=== PATIENT | male | born 1935 | race Caucasian/White ===

== ENCOUNTER → 2023-10-08 12:30 | Outpatient (REF) | payer MEDICARE, BC, SELFPAY ==
[2023-10-08 13:40] LABS: % Basophils 0.6 % (0-2); % Eosinophils 2.2 % (0-6); % Immature Granulocytes 0.3 % (0-0.5); % Lymphocytes 18.5 % (20.5-51.1); % Monocytes 11.3 % (1.7-9.3); % Neutrophils 67.1 % (42.2-75.2); Absolute Eosinophils 0.1 10^3/uL (0-0.7); Absolute Lymphocytes 1.2 10^3/uL (1.2-3.4); Absolute Monocytes 0.7 10^3/uL (0.1-0.6); Absolute Neutrophils 4.3 10^3/uL (1.4-6.5); Hematocrit 41.6 % (39.0-52.0); Hemoglobin 13.9 g/dL (13.0-18.0); Mean Corp Hgb Conc. 33.4 g/dL (33.0-37.0); Mean Corpuscular Hgb 29.1 pg (27.0-31.0); Mean Corpuscular Volume 87.2 fL (80.0-94.0); Mean Platelet Volume 9.4 fL (7.4-10.4); Nucleated Red Blood Cells % 0 % (-); Platelet Count 224 10^3/uL (130-400); Red Blood Cell Count 4.77 10^6/uL (4.70-6.10); Red Cell Dist. Width 14.6 % (11.5-14.5); White Blood Cell Count 6.5 10^3/uL (4.8-10.8)
[2023-10-08 14:08] LABS: Blood Urea Nitrogen 28 mg/dl (9-20); Calcium 9.1 mg/dl (8.4-10.2); Carbon Dioxide 30 mmol/L (22-30); Chloride 96 mmol/L (98-107); Glucose 116 mg/dl (70-99); Potassium 3.4 mmol/L (3.5-5.1); Sodium 137 mmol/L (135-145); eGFR 38.53
== END ==
LOC: REG 12:30
PROVIDERS: ATTENDING PHYSICIAN Family Medicine
DX: N18.31 Chronic kidney disease, stage 3a (principal)
CPT/HCPCS: 36415; 80048; 85025

== ENCOUNTER → 2023-10-08 13:11 | Outpatient (REF) | payer MEDICARE, BC, SELFPAY | LOC: RAD 13:11 | PROVIDERS: ATTENDING PHYSICIAN Internal Medicine Critical Care Medicine | DX: J84.9 Interstitial pulmonary disease, unspecified (principal); R91.8 Other nonspecific abnormal finding of lung field | CPT/HCPCS: 71250 ==

== ENCOUNTER 2023-12-26 11:15 | Inpatient (IN) | payer MEDICARE, BC, SELFPAY ==
[2023-12-25 15:42] VITALS: BMI 36.0
[2023-12-25 16:01] VITALS: BP 134/80
[2023-12-25 16:01] LABS: Hematocrit 38.7 % (39.0-52.0); Hemoglobin 13.2 g/dL (13.0-18.0); Mean Corp Hgb Conc. 34.1 g/dL (33.0-37.0); Mean Corpuscular Hgb 30.1 pg (27.0-31.0); Mean Corpuscular Volume 88.2 fL (80.0-94.0); Mean Platelet Volume 9.5 fL (7.4-10.4); Platelet Count 210 10^3/uL (130-400); Red Blood Cell Count 4.39 10^6/uL (4.70-6.10); Red Cell Dist. Width 15.6 % (11.5-14.5); White Blood Cell Count 8.3 10^3/uL (4.8-10.8)
[2023-12-25 16:25] LABS: NT-proBNP 3180 pg/ml
--- NOTE | 2023-12-25 17:06 | ED.GENMED ---
History of Present Illness
General
Chief Complaint: Breathing Problem
Source: patient, family, daycare teacher and ambulance crew
Time Seen by Provider: 12/25/23 16:46
History of Present Illness
History of Present Illness:
88-year-old male with past medical history of COPD, atrial fibrillation, CHF, hypertension, hyperlipidemia, CKD, previous CVA presenting to the emergency department via EMS after caretaker grounds at home noticed patient was significantly weak and unable to
get up from the bed and seemed very short of breath. Patient endorses the shortness of breath and states that this started last night while he was just laying down and has since continued and associated with a nonproductive cough. No medications
were given at home but EMS reports they did give [address] the way to the ER but patient does not remember this and states he does not feel any different currently. No reports of fever at home, no chest pain, no palpitations, no
diaphoresis, no lower extremity edema per family or caretaker grounds. They report patient takes medications daily and is usually quite good and not missing any dosages. Patient sees cardiology, Dr. Rosen and cooker operator Dr. Johnson
Past History
Past History
ED Past Medical History: Arrthythmia (AFIB, s/p cardioversion), CHF, COPD, HTN, Hypercholesterolemia and Hypothyroidism
ED Past Surgical History: None
Social History
Tobacco: Former smoker
Alcohol: Occasional
Drug: None
Personal:
Living: with family
Review of Systems
Review of Systems
All Other Systems: ROS reviewed and negative except as documented in HPI and ROS
Phy Exam
Physical Exam
Physical Exam:
GENERAL: Alert , in no apparent distress, overweight
HEAD: NCAT
EYE: Clear conjunctiva
NECK: Supple
ENT: o/p clr, mmm.
CARDIAC: Irregularly irregular rate and rhythm but rate controlled
LUNGS: Scattered wheezes throughout, tachypneic with accessory muscle use
ABDOMEN: Soft, without focal tenderness, no r/g, no cvat
NEUROLOGICAL: Alert and oriented
SKIN: Warm and dry, skin intact.
MUSCULOSKELETAL: trace nonpitting ankle edema bilateral, well perfused.
PSYCH: Normal and appropriate interaction.
Scores
Heart Failure Risk
Heart Failure Risk Score: Yes
History of Stroke or TIA: Yes
History of intubation for respiratory distress: No
Heart rate on ED arrival >/= 110: No
SaO2 <90% on arrival on room air: No
HR >/=110 during 3min walk test (or too ill to perform test): Yes
ECG has acute ischemic changes: No
Urea >/=12mmol/L (BUN 33.6mg/dL): No
Serum CO2>/=35mmol/L: No
Troponin I or T elevated to IL Level (0.4mg/dL): No
NT-proBNP >/=5,000ng/L (5,000pg/ml): No
HF Risk Score: 3
Admission Status: HIGH RISK 15.9% Consider SNF treatment or admission to hospital
Heart Score for Chest Pain Patients
STEMI patient?: Not applicable
Withdrawal Assessment of Alcohol
Withdrawal Assessment Completed?: Not applicable
Course
Orders/Labs/Results
Orders:
Orders
12/25/23 15:47
Electrocardiogram (*1) Urgent
Reason for Study: Shortness of Breath
EKG- Treatment ONCE
12/25/23 15:51
BNP [NT-proBNP] Urgent
Complete Blood Count/No Diff Urgent
Troponin I Urgent
Comment: ADD ON
12/25/23 17:03
Albuterol Nebs [Ventolin Nebules] 2.5 mg INH R NOW STA
CR Chest Portable - 1 View Urgent
Comment:
Reason For Exam: SOB
Reason Study Needs to be Portable: Unable to Transport
12/25/23 17:13
Add On- LAB Urgent
Tests Added?: troponin
12/25/23 17:38
COVID-19 Antigen Urgent
Source: Nasal Swab
Comprehensive Metabolic Panel Urgent
12/25/23 18:22
MethylPREDNISolone PF [Solu-Medrol Pf] 60 mg IV NOW STA
Abnormal Lab Results
12/25/23 12/25/23
15:51 17:38
RBC 4.39 L 10^6/uL
(4.70-6.10)
Hct 38.7 L %
(39.0-52.0)
RDW 15.6 H %
(11.5-14.5)
Sodium 133 L mmol/L
(135-145)
BUN 22 H mg/dl
(9-20)
Creatinine 1.6 H mg/dL
(0.7-1.3)
Glucose 115 H mg/dl
(70-99)
Total Bilirubin 2.6 H mg/dl
(0.2-1.3)
12/25/23 15:51
12/25/23 17:38
Vital Signs
Initial and Last Documented VS:
Initial Vital Signs
Temp
99.3 F
12/25/23 15:51
Last Documented Vital Signs
Temp Pulse Resp BP Pulse Ox
99.3 F 86 29 138/84 93
12/25/23 15:51 12/25/23 18:40 12/25/23 18:40 12/25/23 18:40 12/25/23 18:40
MDM/Problems Addressed
Differential Diagnosis Includes:
CHF, COPD, pneumonia, viral syndrome, electrolyte disturbance, pulmonary edema
MDM/Problems Addressed:
88-year-old male presenting to the emergency department for evaluation of generalized weakness, cough, shortness of breath. Arrives tachypneic with accessory muscle use. O2 saturation ranging from 92 to 96% on room air. Patient unable to sit up
without significant assistance which is very atypical for him per family. He does have scattered wheezing throughout so we will treat with an albuterol regimen. Labs ordered as well as chest x-ray. Based off of age, chronic medical conditions and
current presentation I do anticipate admission.
Chronic conditions affecting care: Arrhythmia, COPD and Other (CHF)
*Radiology
Radiology exam reviewed: radiology read reviewed
*Pulse Oximetry
Patient hypoxic: no
*EKG
Interpreted by ED Provider?: Yes
Comparison EKG: no changes
Heart Rate: 85
Rate: normal
Rhythm: a-fib and PVC's
[place]: left axis deviation
Ischemia: no ischemia
*Roofer [employer] Interpretation
Rate: normal
Rhythm: a-fib
*Critical Care Note
Total Time (30-74mins, 75-104mins- exclusive of procedures): Not Applicable
Data Reviewed
Review of Other/Old Records Reveals: Labs and Records
Source: patient, records and family
Patient Management
Discussion with other providers: Hospitalist
Escalation/DeEscalation of care consider admission/obs:
Patient's labs are mostly reassuring. BNP is elevated however lower than previous. No signs of anemia or electrolyte disturbance. COVID-negative. Chest x-ray without any acute abnormalities. Patient noted no improvement with albuterol. Still
has little bit of an upper airway wheeze however. He is still unable to hold himself up in bed. Given his age and chronic medical conditions will admit for continuous monitoring. Hospitalist team is aware and accepts for continued evaluation and
treatment.
ED Attending Note
-
Portions of this chart may have been created with voice recognition software.� Occasional wrong word or��sound alike� substitutions may have occurred due to the inherent limitations of voice recognition software.
Discharge Plan
Departure
Patient Disposition: Admit
Date of Disposition: 12/25/23
Time of Disposition: 18:21
Presentation/result/management discussed w/ accepting MD/DO: Hospitalist
Discharge Problem:
Generalized weakness, Acute exacerbation of chronic obstructive pulmonary disease, CHF (congestive heart failure)
Prescriptions:
No Action
cyanocobalamin (vitamin B-12) 1,000 MCG tablet
1,000 mcg PO DAILY
calcium polycarbophil [Fiber-Tabs] 625 MG tablet
625 mg PO DAILY
levothyroxine 125 mcg Tablet
125 mcg PO DAILY
Eliquis 2.5 mg Tablet
2.5 mg PO BID 30 Days Qty: 60 0RF
furosemide [Lasix] 80 mg tablet
80 mg PO DAILY Qty: 90 5RF
pantoprazole 40 mg Tablet,Delayed Release (Dr/Ec)
40 mg PO DAILY Qty: 90 0RF
sennosides [senna] 8.6 mg Tablet
8.6 mg PO DAILY
atorvastatin 20 mg Tablet
20 mg PO HS
furosemide 80 mg Tablet
40 mg PO DAILY@1300 PRN (Reason: swelling/edema)
dapagliflozin propanediol [Farxiga] 10 mg Tablet
10 mg PO DAILY
metoprolol succinate 25 mg tablet extended release 24 hr
25 mg PO BID
Referrals:
Hilda England MD [Family Provider] -
Interventions
Interventions:
*Risk Screen - Suicide Last Done: 12/25/23 15:42
*General Assessment Last Done: 12/25/23 15:42
*Neglect/Abuse Screening Last Done: 12/25/23 15:42
*ED COVID-19 Vaccine History Last Done: 12/25/23 15:42
ED- Cardiac Assessment Last Done: 12/25/23 18:45
ED- Pulmonary Assessment Last Done: 12/25/23 18:45
Discharge Date and Time
Print Language: SWISS
[2023-12-25] MEDS: VENTOLIN NEBULES 2.5 MG INH (17:15)
[2023-12-25 17:37] LABS: Troponin I < 0.012 ng/ml
[2023-12-25 17:58] LABS: COVID-19 Antigen Negative (Negative)
[2023-12-25 18:09] LABS: ALT (SGPT) 13 U/L (0-50); AST (SGOT) 35 U/L (17-59); Alkaline Phosphatase 72 U/L (38-126); Blood Urea Nitrogen 22 mg/dl (9-20); Calcium 8.7 mg/dl (8.4-10.2); Carbon Dioxide 27 mmol/L (22-30); Chloride 99 mmol/L (98-107); Estimated Creatinine Clearance 43 ml/min; Glucose 115 mg/dl (70-99); Potassium 4.3 mmol/L (3.5-5.1); Sodium 133 mmol/L (135-145); Total Bilirubin 2.6 mg/dl (0.2-1.3); Total Protein 7.4 g/dl (6.3-8.2); eGFR 41.19
--- NOTE | 2023-12-25 18:23 | HPS.HSE ---
Family Physician
-
Family Physician: Hilda England MD
Chief Complaint
-
Generalized weakness
History of Present Illness
88-year-old male with past medical history of COPD, atrial fibrillation, CHF, hypertension, hyperlipidemia, CKD, previous CVA presenting to the emergency department via EMS after search analyst at home noticed patient was significantly weak and unable to
get up from the bed . He vomited once. Patient seemed short of breath last night . At present he is denying any short of breath or chest pain.denied worsening lower extremities edema. Patient denied any headache, dizziness, syncopal episode
patient denied any fever, chills .patient has chronic cough .patient denied abdominal pain, nausea, vomiting, diarrhea. Patient denies dysuria hematuria
Patient received steroids labs in ER. Admitted for further management
Medical History
Past Medical History
Past Medical History: Reports Other
Additional Past Medical History:
HTN
Hypothyroidism
TIA
atiral fib
peripheral neuropathy
CKD
hld
Past Surgical History: Reports Other
Additional Past Surgical History:
MOHS surgery
cardioversion x2
Social History
Tobacco: Former Smoker
Alcohol: None
Drug: None
Personal: Single
Living: With Family
Family History
Family History: Not pertinent
Allergies / Home Medications
Allergies reflects when Allergies were last updated in [facility].
Home Medications with original date entered in [facility]
Allergy/Medication List:
Allergies
Allergy/AdvReac Type Severity Reaction Status Date / Time
amlodipine Allergy cough Verified 12/25/23 15:55
lisinopril Allergy cough Verified 12/25/23 15:55
Home Medications
calcium polycarbophil 625 mg tablet (Fiber-Tabs) 625 mg PO DAILY 01/17/20
cyanocobalamin (vitamin B-12) 1,000 mcg tablet 1,000 mcg PO DAILY Supplement 01/17/20
levothyroxine 125 mcg tablet 125 mcg PO DAILY 03/01/22
apixaban 2.5 mg tablet (Eliquis) 2.5 mg PO BID 30 days #60 tabs 03/08/22
furosemide 80 mg tablet (Lasix) 80 mg PO DAILY #90 tabs 06/05/22
pantoprazole 40 mg tablet,delayed release 40 mg PO DAILY #90 tabs 07/11/22
atorvastatin 20 mg tablet 20 mg PO HS 12/25/23
dapagliflozin propanediol 10 mg tablet (Farxiga) 10 mg PO DAILY 12/25/23
furosemide 80 mg tablet 40 mg PO DAILY@1300 PRN swelling/edema 12/25/23
metoprolol succinate 25 mg tablet,extended release 24 hr 25 mg PO BID 12/25/23
sennosides 8.6 mg tablet (senna) 8.6 mg PO DAILY 12/25/23
Review of Systems
-
Constitutional: Reports No Symptoms
EENT: Reports No Symptoms
Respiratory: Reports Trouble Breathing
Cardiac: Reports No Symptoms
Abdomen/GI: Reports Vomiting
: Reports No Symptoms
Musculoskeletal: Reports No Symptoms
Skin: Reports No Symptoms
Neurological: Reports Weakness
Endocrine: Reports No Symptoms
Hematologic/Lymphatic: Reports No Symptoms
Psych: Reports No Symptoms
Physical Exam
Vital Signs
Vital Signs
Temp Pulse Resp BP Pulse Ox
99.3 F 82 34 134/80 92
12/25/23 15:51 12/25/23 16:01 12/25/23 16:01 12/25/23 16:01 12/25/23 16:01
Physical Exam
General: Well Developed, Well Nourished and No Apparent Distress
HEENT: NormoCephalic, Moist mucous membranes and Atraumatic
Respiratory: Clear
Cardiac: S1/S2 and Regular Rhythm; No Murmur or Rub
GI: Soft, Non Tender, Non Distended and Normal Bowel Sounds; No Organomegaly
Rectal: Deferred by Provider
Musculoskeletal: No Clubbing, No Cyanosis and No Edema
Skin: No Rash
Neuro: AO x 3 and Nonfocal/grossly intact
Psych: Calm
Laboratory Results
-
12/25/23 15:51
12/25/23 17:38
Laboratory Results
Total Bilirubin 2.6 mg/dl (0.2-1.3) H 12/25/23 17:38
AST 35 U/L (17-59) 12/25/23 17:38
ALT 13 U/L (0-50) 12/25/23 17:38
Alkaline Phosphatase 72 U/L (38-126) 12/25/23 17:38
Troponin I Cancelled 12/25/23 17:03
Data Reviewed
-
Diagnostic Radiology: Report Reviewed by me
Lab Data: Labs Reviewed by me
Impression/Plan
-
# Short of breath unclear cause
-COVID negative
-chest x ray with No suspected acute cardiopulmonary process.
-Patient denying any short of breath
-Continue to monitor
#generalized weakness
-PT/OT consult
# History of CHF
-BNP 3180
-Strict [place]
-Daily weight
-Furosemide from home continued
-Farxiga continued
# Paroxysmal A-fib
-Eliquis continued
-Metoprolol continued
#GERD
-PPI continued
#CKD stage 3b
-cr 1.6
ctm
#HLD
Continue atorvastatin
#Hypothyroidism
Levothyroxine 125 MCG daily
DVT prophylaxis eliquis
# CODE STATUS
-Full code
--- NOTE | 2023-12-25 18:27 | W.PN.UPDATE ---
Update Note
Progress Note Update
I saw and examined the patient.
The ORGANIZATIONAL EFFECTIVENESS DIRECTOR or PA's note was reviewed and I agree with the note.
Comment: 80-year-old male with PMHx:
CAD s/p stents
HFrEF
Essential hypertension
Hyperlipidemia
h/o TIA
DM2
COPD
ILD
Hypothyroidism
BPH
Permanent atrial fibrillation
CKD3b
Hyponatremia
who p/w chief complaints of weakness and shortness of breath.
130/80, 82, 34, 9.3 �F, 92% RA
Gen: NAD, AAOx3.
Eyes: EOMI, PERRLA, no scleral icterus.
Neck: supple.
CV: irreg/irreg, +S1/S2, no m/r/g.
Resp: Faint expiratory wheezes, greatest in the upper lung roberts
Abd: +BS, soft, NT, ND
Skin: No rashes.
Neuro: CN 2-12 intact, non-focal.
Psych: Normal mood and affect.
Lab Results
12/25/23 12/25/23 12/25/23
15:51 17:03 17:38
WBC 8.3
RBC 4.39 L
Hgb 13.2
Hct 38.7 L
MCV 88.2
MCH 30.1
MCHC 34.1
RDW 15.6 H
Plt Count 210
MPV 9.5
Sodium Cancelled 133 L
Potassium Cancelled 4.3
Chloride Cancelled 99
Carbon Dioxide Cancelled 27
BUN Cancelled 22 H
Creatinine Cancelled 1.6 H
Estimated Creat Clear Cancelled 43
eGFR Cancelled 41.19
Glucose Cancelled 115 H
Calcium Cancelled 8.7
Total Bilirubin Cancelled 2.6 H
AST Cancelled 35
ALT Cancelled 13
Alkaline Phosphatase Cancelled 72
Troponin I < 0.012 Cancelled
Bqr-H-Zqbmjklfbyt Pept 3180
Total Protein Cancelled 7.4
Albumin Cancelled 4.0
SARS-CoV-2 Antigen Negative
CXR: No suspected acute cardiopulmonary process.
SOB, weakness:
-Patient was short of breath last night but denies shortness of breath at this time.
-CXR without acute disease
-proBNP lower than prior at 3180
-saturating well on RA (92% is ideal for COPD pt)
-Currently there does not appear to be an exacerbation of COPD or CHF
-PT/OT/CM
[2023-12-25 18:40] VITALS: BP 138/84
[2023-12-25 20:07] VITALS: BP 123/80; BMI 34.6
[2023-12-25] MEDS: ELIQUIS 2.5 MG PO (21:20)
[2023-12-25] MEDS: TOPROL XL 25 MG PO (21:20)
[2023-12-25] MEDS: LIPITOR 20 MG PO (21:21)
[2023-12-25 23:35] VITALS: BP 172/97
[2023-12-25 23:45] VITALS: BP 155/94
[2023-12-26] VITALS (7 sets, daily range): BP systolic 124–152; BP diastolic 78–98; PULSE 74–78; O2SAT 96; BMI 34.5
--- NOTE | 2023-12-26 03:44 | PTCARENOTE ---
Pt very congested, looks SOB/grunting- pt states is normal for him. Feels warm to touch temp 99.2 axillary, orally 98.2- pt refusing rectal temp at this time. Pt vomited moderate amount yellow emesis found on pt and on gown- pt did not ring call
marshall to notify RN that he had vomited- denies nausea at this time. Cleaned patient, bed alarm in place. Care is ongoing.
[2023-12-26] MEDS: SYNTHROID 125 MCG PO (06:11)
[2023-12-26 08:23] LABS: Hematocrit 39.6 % (39.0-52.0); Hemoglobin 13.1 g/dL (13.0-18.0); Mean Corp Hgb Conc. 33.1 g/dL (33.0-37.0); Mean Corpuscular Hgb 29.9 pg (27.0-31.0); Mean Corpuscular Volume 90.4 fL (80.0-94.0); Mean Platelet Volume 9.6 fL (7.4-10.4); Platelet Count 190 10^3/uL (130-400); Red Blood Cell Count 4.38 10^6/uL (4.70-6.10); White Blood Cell Count 6.2 10^3/uL (4.8-10.8)
[2023-12-26] MEDS: VITAMIN B-12 1000 MCG PO (08:50)
[2023-12-26] MEDS: SENOKOT 8.6 MG PO (08:50)
[2023-12-26] MEDS: FARXIGA 10 MG PO (08:51)
[2023-12-26] MEDS: FIBERCON 625 MG PO (08:51)
[2023-12-26] MEDS: TOPROL XL 25 MG PO ×2 (08:51→21:34)
[2023-12-26] MEDS: PROTONIX 40 MG PO (08:51)
[2023-12-26] MEDS: ELIQUIS 2.5 MG PO ×2 (08:51→21:34)
[2023-12-26 08:57] LABS: Blood Urea Nitrogen 21 mg/dl (9-20); Calcium 8.8 mg/dl (8.4-10.2); Carbon Dioxide 28 mmol/L (22-30); Chloride 97 mmol/L (98-107); Estimated Creatinine Clearance 39 ml/min; Glucose 122 mg/dl (70-99); Potassium 3.6 mmol/L (3.5-5.1); Sodium 134 mmol/L (135-145)
--- NOTE | 2023-12-26 09:54 | W.PN.HOSP.TC ---
Addendum entered and electronically signed by Bienvenido Berger MD 12/26/23 10:32:
Correction to physical exam:
Gen: NAD, Awake and alert, appears chronically ill
Eyes: EOMI, PERRLA, no scleral icterus.
Neck: supple.
CV: irreg/irreg, +S1/S2, no m/r/g.
Resp: CTAB anteriorly
Abd: +BS, soft, NT, ND
Skin: No rashes.
Neuro: CN 2-12 intact, non-focal.
Psych: Normal mood and affect.
Original Note:
Today's Communication/Plan
-
see bold
Assessment / Plan
Assessment / Plan
Gen: NAD, AAOx3.
Eyes: EOMI, PERRLA, no scleral icterus.
Neck: supple.
CV: irreg/irreg, +S1/S2, no m/r/g.
Resp: Faint expiratory wheezes, greatest in the upper lung roberts
Abd: +BS, soft, NT, ND
Skin: No rashes.
Neuro: CN 2-12 intact, non-focal.
Psych: Normal mood and affect.
CXR: No suspected acute cardiopulmonary process.
SOB, weakness:
-Patient was short of breath one night prior to admission but denied shortness of breath at this time of admission
-CXR without acute disease
-proBNP lower than prior at 3180
-saturating well on RA (92% is ideal for COPD pt)
-Currently there does not appear to be an exacerbation of COPD or CHF
-PT/OT/CM
-with drowsiness, confusion (possible acute metabolic encephalopathy) and urinary urgency, possible UTI. Check U/A reflex to culture.
Other problems:
Chronic HFmrEF: Farxiga/BB/Lasix
Paroxysmal A-fib: cont Eliquis/BB
GERD: cont PPI
CKD3b
HLD: cont statin
Hypothyroidism: Cont Levoxyl
FULL/Eliquis
Medically cleared for discharge pending U/A, case management aware.
Anticipated Discharge: Today
Subjective/Interval History
-
Date of Service: December 26, 2023
Caregiver with concerns for pt being 'more drowsy and confused.' Also reporting urinary urgency.
The pt denies dyuria or change in frequency.
Objective Data
-
Labs:
Laboratory Results
12/26/23
07:08
WBC 6.2
Hgb 13.1
Hct 39.6
Plt Count 190
Sodium 134 L
Potassium 3.6
Chloride 97 L
Carbon Dioxide 28
BUN 21 H
Creatinine 1.7 H
Glucose 122 H
Calcium 8.8
Vital Signs:
Vital Signs
Temp Pulse Resp BP Pulse Ox
98.7 F 75 24 138/79 96
12/26/23 07:15 12/26/23 07:15 12/26/23 07:15 12/26/23 07:15 12/26/23 07:15
I&O
12/25/23 12/26/23 12/27/23
06:59 06:59 06:59
Output Total 200 / 200
Balance -200 / -200
[2023-12-26] MEDS: LASIX 80 MG PO (10:13)
[2023-12-26] MEDS: TYLENOL 650 MG PO ×2 (11:04→23:24)
[2023-12-26 11:13] LABS: Urine Albumin 1+ (Neg - Trace); Urine Bilirubin Negative (Negative); Urine Character Clear (Clear); Urine Color Yellow; Urine Glucose 3+ (Negative); Urine Ketone Negative (Negative); Urine Leukocyte Negative (Negative); Urine Nitrite Negative (Negative); Urine Occult Blood 3+ (Negative); Urine Urobilinogen 1+ (Neg - 1+)
--- NOTE | 2023-12-26 11:27 | PHA.VAN.IN ---
Assessment
- Assessment
Renal Function: Appears similar to baseline
Maximum Temperature: 101.3F - oral - 12/25 11:04
Concomitant Antimicrobials: cefepime
Plan
- Plan
Initial / Loading Dose: 2000mg - administration pending
Maintenance Regimen: dosing by level
Monitoring: random 12/26 0600
MRSA Screen: Ordered per protocol
Pharmacokinetics Vancomycin I
- -
Patient Age: 88
Patient Sex: Male
Vancomycin Day #: 1
Indication: Bacteremia
Requesting Provider: Dr. Berger
Pertinent Antimicrobial Allergies:
no pertinent antibiotic allergies
Height / Weight:
Height 6 ft
Actual Weight 115.269 kg
Pertinent Past Medical History: BMI ~35, CKD
- Vital Signs / Lab Results
Temp Pulse Resp BP Pulse Ox
101.3 F H 75 24 138/79 96
12/26/23 11:04 12/26/23 07:15 12/26/23 07:15 12/26/23 07:15 12/26/23 07:15
Lab Results - Hematology
12/25/23 12/26/23
15:51 07:08
WBC 8.3 6.2
Lab Results - Chemistry
12/25/23 12/25/23 12/26/23
15:51 17:38 07:08
BUN Cancelled 22 H 21 H
Creatinine Cancelled 1.6 H 1.7 H
Estimated Creat Clear Cancelled 43 39
Albumin Cancelled 4.0
Lab Results - Urine
12/26/23
11:03
Urine Nitrite (Reflex) Negative
Leukocyte Esterase Rfl Negative
[2023-12-26 11:41] LABS: Urine Amorphous Seen
[2023-12-26 11:43] LABS: Urine White Cell 0-2 /HPF (0-5)
[2023-12-26 11:45] LABS: Urine Hyaline Cast 0-2 /LPF (0-2)
[2023-12-26] MEDS: VANCOCIN 540 MG IV (12:46)
[2023-12-26] MEDS: STERILE WATER FOR INJECTION 10 ML IV ×2 (12:46→23:12)
[2023-12-26] MEDS: MAXIPIME 2000 MG IV ×2 (12:47→23:11)
[2023-12-26] MEDS: LIPITOR 20 MG PO (21:35)
[2023-12-27] MEDS: SYNTHROID 125 MCG PO (05:27)
[2023-12-27 05:53] VITALS: BMI 34.3
[2023-12-27 07:15] VITALS: BP 125/79
[2023-12-27 08:21] LABS: Vancomycin Random 11.1 ug/ml
--- NOTE | 2023-12-27 08:27 | PHA.VAN.FU ---
Vancomycin Assessment / Plan
- Assessment
Renal Function: SCR Increasing
WBC's are: WNL
In the past 24 hrs, patient has been: Febrile (101.3F)
Concomitant Antimicrobials: CEFEPIME
- Assessment - Therapeutic Drug Monitoring
Random Level: 11.1
- Dosing Plan
Dosing by Level: Re-dose today (1000MG)
- Monitoring Plan
Random Level: 12/27 IN AM
- Follow Up
Pharmacy will continue to follow.
Vancomycin Follow UP
- -
Patient Age: 88
Patient Sex: Male
Vancomycin Day #: 2
Indication: Bacteremia
Requesting Provider: Dr. Berger
Pertinent Antimicrobial Allergies:
no pertinent antibiotic allergies
Height / Weight:
Height 6 ft
Actual Weight 114.504 kg
Pertinent Past Medical History: BMI ~35, CKD
- Vital Signs / Lab Results
Temp Pulse Resp BP Pulse Ox
97.5 F 80 18 125/79 96
12/27/23 07:15 12/27/23 07:15 12/27/23 07:15 12/27/23 07:15 12/27/23 07:15
Lab Results - Hematology
12/25/23 12/26/23
15:51 07:08
WBC 8.3 6.2
Lab Results - Chemistry
12/25/23 12/25/23 12/26/23
15:51 17:38 07:08
BUN Cancelled 22 H 21 H
Creatinine Cancelled 1.6 H 1.7 H
Estimated Creat Clear Cancelled 43 39
Albumin Cancelled 4.0
Lab Results - Urine
12/26/23
11:03
Urine Nitrite (Reflex) Negative
Leukocyte Esterase Rfl Negative
Ur Squamous Epith Cells 3-5
Therapeutic Drug Monitoring
Random Vancomycin 11.1 ug/ml 12/27/23 06:59
[2023-12-27] MEDS: PROTONIX 40 MG PO (09:22)
[2023-12-27] MEDS: DESENEX/MITRAZOL/ZEASORB 1 APPLIC TOPICAL ×2 (09:22→20:16)
[2023-12-27] MEDS: VITAMIN B-12 1000 MCG PO (09:23)
[2023-12-27] MEDS: TOPROL XL 25 MG PO ×2 (09:23→20:14)
[2023-12-27] MEDS: LASIX 80 MG PO (09:23)
[2023-12-27] MEDS: FARXIGA 10 MG PO (09:23)
[2023-12-27] MEDS: FIBERCON 625 MG PO (09:23)
[2023-12-27] MEDS: ELIQUIS 2.5 MG PO ×2 (09:23→20:14)
[2023-12-27] MEDS: SENOKOT 8.6 MG PO (09:24)
--- NOTE | 2023-12-27 10:01 | W.PN.HOSP.TC ---
Today's Communication/Plan
-
see bold
Assessment / Plan
Assessment / Plan
Gen: NAD, Awake and alert
Eyes: EOMI, PERRLA, no scleral icterus.
Neck: supple.
CV: remains irreg/irreg, +S1/S2, no m/r/g.
Resp: CTAB
Abd: +BS, soft, NT, ND
Skin: No rashes. trace, dependent B/L LE edema
Neuro: CN 2-12 intact, non-focal.
Psych: Normal mood and affect.
CXR 12/25/23: No suspected acute cardiopulmonary process.
CXR 12/26/23: No acute cardiopulmonary process.
SOB, weakness:
-Patient was short of breath one night prior to admission but denied shortness of breath at this time of admission
-CXR without acute disease
-proBNP lower than prior at 3180
-saturating well on RA (92% is ideal for COPD pt)
-Currently there does not appear to be an exacerbation of COPD or CHF
-PT/OT/CM
Fever:
-developed fever on 12/26/23 with drowsiness, confusion (possible acute metabolic encephalopathy). Now improved.
-repeat CXR clear, U/A without evidence of UTI
-follow BCxs
-cont empiric Vanco/Cefepime
Other problems:
Chronic HFmrEF: Farxiga/BB/Lasix
Paroxysmal A-fib: cont Eliquis/BB
GERD: cont PPI
CKD3b
HLD: cont statin
Hypothyroidism: Cont Levoxyl
FULL/Eliquis
Anticipated Discharge: 24 - 48 hours
Subjective/Interval History
-
Date of Service: December 27, 2023
Pt offers no complaints. When asked he states mild SOB. Denies CP.
Objective Data
-
Vital Signs:
Vital Signs
Temp Pulse Resp BP Pulse Ox
97.5 F 80 18 125/79 96
12/27/23 07:15 12/27/23 09:23 12/27/23 07:15 12/27/23 09:23 12/27/23 07:15
I&O
12/26/23 12/27/23 12/28/23
06:59 06:59 06:59
Intake Total 840 / 840
Output Total 200 / 200 1180 / 1180
Balance -200 / -200 -340 / -340
[2023-12-27] MEDS: VANCOCIN 200 IV (11:07)
[2023-12-27] MEDS: STERILE WATER FOR INJECTION 10 ML IV (13:17)
[2023-12-27] MEDS: MAXIPIME 2000 MG IV (13:17)
[2023-12-27 15:16] VITALS: BP 179/96
[2023-12-27 15:51] VITALS: BP 163/93
[2023-12-27] MEDS: TYLENOL 650 MG PO (15:55)
[2023-12-27 16:34] LABS: TSH Reflex To Free T4 0.62 uIU/ml (0.47-4.68)
[2023-12-27 20:19] LABS: COVID-19 Antigen Positive (Negative)
--- NOTE | 2023-12-27 21:00 | PTCARENOTE ---
In the beginning of this shift, pt's daughter Susie called to inform of her Covid positive test today. Susie called and informed this RN that her home Covid test was positive as well as her sister Iman. Susie stated that she was visiting
her father yesterday for a long hours. Her sister Iman also visited her father yesterday and today. Susie express concerns about her father and also the roommate. JOO (Yuri) made aware of the pt's exposure to Covid, ordered a Covid test.
The Covid test came back positive. Nursing supervisor firearms made aware. Pt to be transferred to room 2131 in [address]. Pt is awake, alert, oriented X3, no drowsiness. Pt denies chills, fever, or SOB, but admits to coughing 'a phlegm'. Pt states that he had this
cough for more than a year. VSS (T=98.5, HR=87, RR=20, PQ=901/84, SpO2=92% on RA). Pt informed of the postive result, feels 'sorry' for the staff. Pt states that he will call his daughter and inform her about the result. Report giving to Tresa RODRIGUEZ.
Pt transferred in his bed in stable condition.
[2023-12-27 21:26] VITALS: BP 138/89
[2023-12-27] MEDS: LIPITOR 20 MG PO (21:59)
[2023-12-27 23:11] VITALS: BP 138/82
[2023-12-28] MEDS: STERILE WATER FOR INJECTION 10 ML IV (00:16)
[2023-12-28] MEDS: MAXIPIME 2000 MG IV (00:16)
[2023-12-28] MEDS: SYNTHROID 125 MCG PO (05:33)
[2023-12-28 05:44] VITALS: BMI 33.5
[2023-12-28 06:00] VITALS: BMI 33.5
[2023-12-28 07:13] VITALS: BP 142/95
[2023-12-28 07:23] LABS: Vancomycin Random 10.8 ug/ml
--- NOTE | 2023-12-28 07:51 | PHA.VAN.FU ---
Vancomycin Assessment / Plan
- Assessment
Renal Function: No New Labs Today
WBC's are: WNL
In the past 24 hrs, patient has been: Febrile (100.7)
Concomitant Antimicrobials: CEFEPIME
- Assessment - Therapeutic Drug Monitoring
Random Level: 10.8
- Dosing Plan
Dosing by Level: Re-dose today (1250MG)
- Monitoring Plan
Random Level: 8/12 IN AM
- Follow Up
Pharmacy will continue to follow.
Vancomycin Follow UP
- -
Patient Age: 88
Patient Sex: Male
Vancomycin Day #: 3
Indication: Bacteremia
Requesting Provider: Dr. Berger
Pertinent Antimicrobial Allergies:
no pertinent antibiotic allergies
Height / Weight:
Height 6 ft
Actual Weight 112.037 kg
Pertinent Past Medical History: BMI ~35, CKD
- Vital Signs / Lab Results
Temp Pulse Resp BP Pulse Ox
98.5 F 87 18 142/95 93
12/28/23 07:13 12/28/23 07:13 12/28/23 07:13 12/28/23 07:13 12/28/23 07:13
Lab Results - Hematology
12/25/23 12/26/23
15:51 07:08
WBC 8.3 6.2
Lab Results - Chemistry
12/25/23 12/25/23 12/26/23
15:51 17:38 07:08
BUN Cancelled 22 H 21 H
Creatinine Cancelled 1.6 H 1.7 H
Estimated Creat Clear Cancelled 43 39
Albumin Cancelled 4.0
Microbiology Results
12/26/23 13:55 MRSA Screen - Final
Nose No Methicillin Resistant Staphylococcus aureus isolated.
12/26/23 12:46 Blood Culture - Preliminary
Blood/Venous No Growth in 24 hours- Final report to follow
12/26/23 11:24 Blood Culture - Preliminary
Blood/Venous No Growth in 24 hours- Final report to follow
Therapeutic Drug Monitoring
Random Vancomycin 10.8 ug/ml 12/28/23 06:50
[2023-12-28 08:20] LABS: Cortisol, Random 24.5 ug/dl
[2023-12-28] MEDS: VANCOCIN 275 MG IV (09:03)
[2023-12-28] MEDS: TOPROL XL 25 MG PO ×2 (09:03→20:09)
[2023-12-28] MEDS: PROTONIX 40 MG PO (09:03)
[2023-12-28] MEDS: LASIX 80 MG PO (09:03)
[2023-12-28] MEDS: FARXIGA 10 MG PO (09:04)
[2023-12-28] MEDS: ELIQUIS 2.5 MG PO ×2 (09:04→20:09)
[2023-12-28] MEDS: SENOKOT 8.6 MG PO (09:04)
[2023-12-28] MEDS: FLUSH (NSS) 2 FLUSH IV (09:06)
[2023-12-28] MEDS: VITAMIN B-12 PO (09:08)
[2023-12-28] MEDS: FIBERCON PO (09:09)
[2023-12-28] MEDS: DESENEX/MITRAZOL/ZEASORB 1 APPLIC TOPICAL ×2 (09:12→20:10)
--- NOTE | 2023-12-28 09:20 | W.PN.HOSP.TC ---
Today's Communication/Plan
-
Stop antibiotics
Start molnupiravir
Nebulizer treatments
Continue PT OT
Daughter has questions regarding discharge planning. Case management kindly speak with the family.
Assessment / Plan
Assessment / Plan
CVS: S1-S2 normal
Chest: wheezes
Abdomen: Soft, NT / Bowel sounds present
Extremities: No edema, normal pulses
JAVA SYSTEMS ANALYST: Non focal exam
CXR 12/25/23: No suspected acute cardiopulmonary process.
CXR 12/26/23: No acute cardiopulmonary process.
SOB, weakness:
-Likely from COVID 19, now positive
-Patient was short of breath one night prior to admission but denied shortness of breath at this time of admission
-CXR without acute disease
-ProBNP lower than prior at 3180
-Saturating well on RA (92% is ideal for COPD pt)
-Currently there does not appear to be an exacerbation of COPD or CHF
-PT/OT/CM
Fever:
-Developed fever on 12/26/23 with drowsiness, confusion (possible acute metabolic encephalopathy). Now improved.
-Repeat CXR clear
-Stop Cefepime and vancomycin as no bacterial source of fever and also cultures are negative.
-Start nebulizer treatments for wheezing
-Start
-Paxlovid Contraindicated with Eliquis and Atorvastatin.
-Spoke to patient's daughter regarding molnupiravir (she wrote down to look up)
-Will start the patient on that.
-Continue isolation
Other problems:
Chronic HFmrEF: Farxiga/BB/Lasix
Paroxysmal A-fib: Cont Eliquis/BB
GERD: Cont PPI
CKD3b
HLD: Statin
Hypothyroidism: Cont Levoxyl
FULL CODE
DVT Prophylaxis-Eliquis
D/W RN
Spoke to Daughter Susie in detail. She stated that patient's primary physician wants him to go to [facility] rehab. I discussed that with the COVID certain places may have restrictions. Case management discussed with family regarding this.
Both daughters are down with COVID now.
time spent over 50 min
Anticipated Discharge: 24 - 48 hours
Subjective/Interval History
-
Date of Service: December 28, 2023
Objective Data
-
Vital Signs:
Vital Signs
Temp Pulse Resp BP Pulse Ox
98.5 F 87 18 142/95 93
12/28/23 07:13 12/28/23 07:13 12/28/23 07:13 12/28/23 07:13 12/28/23 07:13
I&O
12/27/23 12/28/23 12/29/23
06:59 06:59 06:59
Intake Total 840 / 840 1050 / 1050
Output Total 1180 / 1180 900 / 900
Balance -340 / -340 150 / 150
[2023-12-28] MEDS: VENTOLIN NEBULES 2.5 MG INH ×2 (11:11→15:23)
[2023-12-28] MEDS: MOLNUPIRAVIR (EUA) 800 MG PO ×2 (11:35→20:08)
[2023-12-28 15:37] VITALS: BP 122/87
[2023-12-28 20:08] VITALS: BP 133/85
[2023-12-28] MEDS: ProAIR HFA INHALER 2 PUFF INH (20:38)
[2023-12-28] MEDS: LIPITOR 20 MG PO (21:12)
[2023-12-28 22:51] VITALS: BP 135/86
[2023-12-29] MEDS: SYNTHROID 125 MCG PO (05:36)
[2023-12-29 06:00] VITALS: BMI 33.3
[2023-12-29 06:34] LABS: Hematocrit 40.1 % (39.0-52.0); Hemoglobin 13.4 g/dL (13.0-18.0); Mean Corp Hgb Conc. 33.4 g/dL (33.0-37.0); Mean Corpuscular Hgb 29.2 pg (27.0-31.0); Mean Corpuscular Volume 87.4 fL (80.0-94.0); Mean Platelet Volume 9.2 fL (7.4-10.4); Platelet Count 185 10^3/uL (130-400); Red Blood Cell Count 4.59 10^6/uL (4.70-6.10); Red Cell Dist. Width 15.7 % (11.5-14.5); White Blood Cell Count 4.8 10^3/uL (4.8-10.8)
[2023-12-29 06:53] LABS: Blood Urea Nitrogen 24 mg/dl (9-20); Calcium 8.5 mg/dl (8.4-10.2); Carbon Dioxide 36 mmol/L (22-30); Chloride 94 mmol/L (98-107); Estimated Creatinine Clearance 41 ml/min; Glucose 107 mg/dl (70-99); Potassium 2.8 mmol/L (3.5-5.1); Sodium 135 mmol/L (135-145); eGFR 41.19
[2023-12-29] MEDS: ProAIR HFA INHALER 2 PUFF INH ×4 (07:30→19:56)
[2023-12-29 07:52] VITALS: BMI 33.3
[2023-12-29] MEDS: PROTONIX 40 MG PO (08:28)
[2023-12-29] MEDS: DESENEX/MITRAZOL/ZEASORB 1 APPLIC TOPICAL ×2 (08:28→19:58)
[2023-12-29] MEDS: SENOKOT 8.6 MG PO (08:28)
[2023-12-29] MEDS: MOLNUPIRAVIR (EUA) 800 MG PO ×2 (08:28→19:57)
[2023-12-29] MEDS: VITAMIN B-12 PO ×2 (08:28→08:40)
[2023-12-29] MEDS: FARXIGA 10 MG PO (08:28)
[2023-12-29] MEDS: ELIQUIS 2.5 MG PO ×2 (08:28→19:57)
[2023-12-29] MEDS: FIBERCON PO ×2 (08:28→08:41)
[2023-12-29] MEDS: TOPROL XL 25 MG PO ×2 (08:29→19:57)
[2023-12-29] MEDS: LASIX 80 MG PO (08:29)
[2023-12-29] MEDS: TESSALON PERLES 200 MG PO (08:33)
--- NOTE | 2023-12-29 08:41 | PTCARENOTE ---
Patient c/o of SOB. 92% on RA. Pt placed on 2 L for comfort and sating 95%. Tessalon pearls administered per prn order. Albuterol administered by respirator at 0730.
--- NOTE | 2023-12-29 08:45 | W.PN.HOSP.TC ---
Today's Communication/Plan
-
see bold
Assessment / Plan
Assessment / Plan
CXR 12/25/23: No suspected acute cardiopulmonary process.
CXR 12/26/23: No acute cardiopulmonary process.
Fever:
Acute coronavirus infection:
Acute hypoxic respiratory insufficiency:
-Developed fever on 12/26/23 with drowsiness, confusion (possible acute metabolic encephalopathy). Now improved.
-Repeat CXR clear.
-S/p Cefepime and vancomycin as no bacterial source of fever and also cultures are negative.
-Started molnupiravir 12/27, inhaler treatments for wheezing
-Paxlovid contraindicated with Eliquis and Atorvastatin
-Currently requiring 2 L of oxygen, wean as tolerated
SOB, weakness:
-Likely from COVID 19, now positive
-Patient was short of breath one night prior to admission but denied shortness of breath at this time of admission
-CXR without acute disease
-ProBNP lower than prior at 3180
-Saturating well on RA (92% is ideal for COPD pt)
-Currently there does not appear to be an exacerbation of COPD or CHF
-PT/OT/CM - rec SNF
Hypokalemia:
-Replete
Constipation:
-Increase laxatives
Other problems:
Chronic HFmrEF: Farxiga/BB/Lasix
Paroxysmal A-fib: Cont Eliquis/BB
GERD: Cont PPI
CKD3b
HLD: Statin
Hypothyroidism: Cont Levoxyl
FULL CODE
DVT Prophylaxis-Eliquis
Total time spent to see the patient on the floor, examine the patient, review data and lab results, discuss treatment plan with patient, nursing staff around 35 minutes.
CVS: S1-S2 normal
Chest: wheezes
Abdomen: Soft, NT / Bowel sounds present
Extremities: No edema, normal pulses
INVASIVE CARDIOLOGIST: Non focal exam
Anticipated Discharge: Within 24 hours
Subjective/Interval History
-
Date of Service: December 29, 2023
C/o constipation. Denies SOB, no fever, no N/V/D.
Objective Data
-
Labs:
Laboratory Results
12/29/23
05:37
WBC 4.8
Hgb 13.4
Hct 40.1
Plt Count 185
Sodium 135
Potassium 2.8 L
Chloride 94 L
Carbon Dioxide 36 H
BUN 24 H
Creatinine 1.6 H
Glucose 107 H
Calcium 8.5
Vital Signs:
Vital Signs
Temp Pulse Resp BP Pulse Ox
98 F 84 16 128/87 95
12/28/23 22:51 12/29/23 08:29 12/29/23 07:37 12/29/23 08:29 12/29/23 08:41
I&O
12/28/23 12/29/23 12/30/23
06:59 06:59 06:59
Intake Total 1050 / 1050 1810 / 1810
Output Total 900 / 900 2009
Balance 150 / 150 -200 / -200
[2023-12-29] MEDS: KCL 40 MEQ PO ×2 (09:09→15:28)
[2023-12-29 09:23] LABS: Magnesium 2.2 mg/dl (1.6-2.3)
--- NOTE | 2023-12-29 11:39 | CM ---
Late note from 12/27/2023: CM spoke with Mr. Gloria daughter who requested transfer to [facility]; referral sent via [facility].
Mr. Gloria is aaox3, lives alone in a 3 story home; he has a paid caregiver 40 hours per week. His home has 1 entry step with stairglide to the upper levels. He has been ambulatory with a rollator and has a paid caregiver 40 hours per week.
Plan: Daughter requests transfer to [facility] where Mr. Gloria has previously received rehabilitation.
PCP: [facility] on [facility] in [place]
Pharmacy: Dr. England
[2023-12-29 12:15] VITALS: BP 135/90
[2023-12-29 15:33] VITALS: BP 147/88
--- NOTE | 2023-12-29 15:53 | CM ---
Reviewed the chart notes. CM spoke with admissions at the [facility]. They will review referral. CM continues to be available to patient/family and is monitoring medical plan for needs at discharge.
Plan: Awaiting call back regarding bed availability.
[2023-12-29 19:30] VITALS: BP 130/90
[2023-12-29] MEDS: LIPITOR 20 MG PO (21:21)
[2023-12-29 23:21] VITALS: BP 126/87
[2023-12-30 06:00] VITALS: BMI 33.2
[2023-12-30] MEDS: SYNTHROID 125 MCG PO (06:28)
[2023-12-30 07:15] VITALS: BP 120/77
[2023-12-30] MEDS: ProAIR HFA INHALER 2 PUFF INH ×4 (07:50→20:06)
[2023-12-30 07:52] VITALS: BMI 33.2
[2023-12-30 08:49] LABS: Blood Urea Nitrogen 27 mg/dl (9-20); Calcium 8.5 mg/dl (8.4-10.2); Carbon Dioxide 31 mmol/L (22-30); Chloride 96 mmol/L (98-107); Estimated Creatinine Clearance 41 ml/min; Glucose 103 mg/dl (70-99); Potassium 2.9 mmol/L (3.5-5.1); Sodium 136 mmol/L (135-145); eGFR 41.19
[2023-12-30] MEDS: ELIQUIS 2.5 MG PO ×2 (09:36→20:14)
[2023-12-30] MEDS: PROTONIX 40 MG PO (09:36)
[2023-12-30] MEDS: LASIX 80 MG PO (09:36)
[2023-12-30] MEDS: FARXIGA 10 MG PO (09:36)
--- NOTE | 2023-12-30 09:36 | W.PN.HOSP.TC ---
Addendum entered and electronically signed by Caleb Kapoor MD 12/30/23 17:57:
Patient has sepsis, present upon admission.
Patient has permanent atrial fibrillation.
Original Note:
Today's Communication/Plan
-
Discharge to short-term rehab tomorrow
Assessment / Plan
Assessment / Plan
CXR 12/25/23: No suspected acute cardiopulmonary process.
CXR 12/26/23: No acute cardiopulmonary process.
Fever:
Acute coronavirus infection:
Acute hypoxic respiratory insufficiency:
-Developed fever on 12/26/23 with drowsiness, confusion (possible acute metabolic encephalopathy). Now improved.
-Repeat CXR clear.
-S/p Cefepime and vancomycin as no bacterial source of fever and also cultures are negative.
-Started molnupiravir 12/27, inhaler treatments for wheezing
-Paxlovid contraindicated with Eliquis and Atorvastatin
-Currently requiring 2 L of oxygen, wean as tolerated
-Tested positive on 12/26, will need to isolate through 01/05/24
SOB, weakness:
-Likely from COVID 19, now positive
-Patient was short of breath one night prior to admission but denied shortness of breath at this time of admission
-CXR without acute disease
-ProBNP lower than prior at 3180
-Saturating well on RA (92% is ideal for COPD pt)
-Currently there does not appear to be an exacerbation of COPD or CHF
-PT/OT/CM - rec SNF
Hypokalemia:
-Replete by IV and p.o.
Constipation:
-Resolved, continue laxatives
Other problems:
Chronic HFmrEF: Farxiga/BB/Lasix
Paroxysmal A-fib: Cont Eliquis/BB
GERD: Cont PPI
CKD3b
HLD: Statin
Hypothyroidism: Cont Levoxyl
DVT prophylaxis�Eliquis
Full code
Total time spent to see the patient on the floor, examine the patient, review data and lab results, discuss treatment plan with patient, nursing staff around 38 minutes.
Physical Exam
General: No acute distress
HEENT: Normocephalic, Atraumatic, EOMI, MMM
Respiratory: Diminished breath sounds at the bases
Cardiac: Normal S1/S2, Regular Rate and Rhythm
GI: Soft, Nontender, Nondistended, Normal Bowel Sounds
Extremities: No Clubbing, Cyanosis
Neuro: Nonfocal/Grossly Intact
Psych: Calm, Cooperative
Anticipated Discharge: Within 24 hours
Subjective/Interval History
-
Date of Service: December 30, 2023
Patient denies shortness of breath, denies cough. No diarrhea. No fever, no vomiting.
Objective Data
-
Labs:
Laboratory Results
12/30/23
07:32
Sodium 136
Potassium 2.9 L
Chloride 96 L
Carbon Dioxide 31 H
BUN 27 H
Creatinine 1.6 H
Glucose 103 H
Calcium 8.5
Vital Signs:
Vital Signs
Temp Pulse Resp BP Pulse Ox
97.5 F 70 14 120/77 96
12/30/23 07:15 12/30/23 07:57 12/30/23 07:57 12/30/23 07:15 12/30/23 07:57
I&O
12/29/23 12/30/23 12/31/23
06:59 06:59 06:59
Intake Total 1809 / 1809
Output Total 2009 850 / 850
Balance -200 / -200 -850 / -850
[2023-12-30] MEDS: VITAMIN B-12 PO ×2 (09:37→09:59)
[2023-12-30] MEDS: TOPROL XL 25 MG PO ×2 (09:37→20:16)
[2023-12-30] MEDS: SENOKOT 8.6 MG PO (09:37)
[2023-12-30] MEDS: MOLNUPIRAVIR (EUA) 800 MG PO ×2 (09:37→20:14)
[2023-12-30] MEDS: DESENEX/MITRAZOL/ZEASORB 1 APPLIC TOPICAL ×2 (09:38→20:18)
[2023-12-30] MEDS: FIBERCON PO (09:38)
[2023-12-30] MEDS: KCL 260 MEQ IV (10:45)
[2023-12-30] MEDS: KCL 40 MEQ PO ×2 (10:45→16:29)
--- NOTE | 2023-12-30 11:06 | PN.CDI ---
CDI
- -
CDI:
Physician Documentation Request
Admit Date: 12/26/23 11:15
Dear Doctor Do,
Please review the following and provide your response in the progress notes.
Clinical Indicators:
Pt admitted with Acute COVID infection /metabolic encephalopathy
On admit Tmax 101.3, Respirations 34
Please clarify which of the following most accurately describes the status of the patient's infection:
Sepsis-POA
- Systemic manifestations of infection, with 2 or more SIRS criteria which include:
- Fever >100.4 degrees F or hypothermia < 96.8 degrees F
- Leukocytosis - WBC > 12,000 or leukopenia - WBC < 4,000 or > 10% bands
- Tachycardia > 90 beats per minute
- Tachypnea - RR > 20 breaths per minute or PaCO2 , 32mmHg
Source: Merck Manual 2013
Acute COVID -19 Infection only , Without Systemic Illness
Other
Use of terms such as suspected, likely, concern for, or probable (associated with a specific diagnosis that is being evaluated, monitored, or treated as if it exists) are acceptable and can be coded in the inpatient setting, when documented at the
time of discharge.
Thank you,
Francisca Curran RN
CDI Specialist
[place] [facility]
Please use your independent medical judgment in providing your response.
--- NOTE | 2023-12-30 11:10 | PN.CDI ---
CDI
- -
CDI:
Physician Documentation Request
Admit Date: 12/26/23 11:15
Dear Doctor Do,
Please review the following and provide your response in the progress notes.
Clinical Indicators:
Pt admitted with Acute COVID infection /metabolic encephalopathy
Update note 12/24,' Permanent atrial fibrillation ...'
Progress notes 12/25-12/28, ' Paroxysmal A-fib: cont Eliquis/BB...'
Prehospital EKG Afib/12/24 EKG- ' ATRIAL FIBRILLATION WITH PREMATURE VENTRICULAR OR ABERRANTLY CONDUCTED COMPLEXES..'
If possible, please provide further specificity regarding atrial fibrillation, such as:
Permanent atrial fibrillation - when a decision has been made to accept the presence of AF and there is no further
attempt to restore or maintain sinus rhythm
Paroxysmal atrial fibrillation - terminates spontaneously or with intervention within 7 days of onset
Other - please specify
Use of terms such as suspected, likely, concern for, or probable (associated with a specific diagnosis that is being evaluated, monitored, or treated as if it exists) are acceptable and can be coded in the inpatient setting, when documented at the
time of discharge.
Thank you,
Francisca Curran RN
CDI Specialist
[place] [facility]
Please use your independent medical judgment in providing your response.
[2023-12-30 13:40] VITALS: BP 122/80; BP 136/88; PULSE 68; O2SAT 98
--- NOTE | 2023-12-30 13:44 | PTCARENOTE ---
spoke with daughter Susie and gave update.
[2023-12-30 15:30] VITALS: BP 122/64
--- NOTE | 2023-12-30 16:09 | CM ---
Reviewed the chart notes and spoke with the patient. Discussed recommendations of PT/OT for SNF. Patient interested in [facility]. [facility] are reviewing the patient's referral. Patient has a assistant gm of content & delivery from [employer] who has
been with him for a years. In addition, he has a grants director who comes in twice weekly. CM continues to be available to patient/family and is monitoring medical plan for needs at discharge.
Plan: Discharge to SNF/rehab once bed found and patient medically stable. Continues on supplemental O2.
[2023-12-30 16:16] LABS: Potassium 3.5 mmol/L (3.5-5.1)
[2023-12-30] MEDS: KCL PO (16:31)
[2023-12-30 18:20] VITALS: BP 122/64
[2023-12-30 20:16] VITALS: BP 129/77
[2023-12-30] MEDS: LIPITOR 20 MG PO (21:14)
[2023-12-30 23:16] VITALS: BP 130/80
[2023-12-31] MEDS: SYNTHROID 125 MCG PO (05:45)
[2023-12-31 06:00] VITALS: BMI 33.1
[2023-12-31 07:00] VITALS: BMI 33.1
[2023-12-31 07:25] LABS: Blood Urea Nitrogen 27 mg/dl (9-20); Calcium 8.7 mg/dl (8.4-10.2); Carbon Dioxide 29 mmol/L (22-30); Chloride 100 mmol/L (98-107); Estimated Creatinine Clearance 44 ml/min; Glucose 109 mg/dl (70-99); Potassium 3.7 mmol/L (3.5-5.1); Sodium 137 mmol/L (135-145)
[2023-12-31 07:35] VITALS: BP 128/83
[2023-12-31] MEDS: ProAIR HFA INHALER 2 PUFF INH ×4 (07:46→19:58)
--- NOTE | 2023-12-31 08:32 | W.PN.HOSP.TC ---
Today's Communication/Plan
-
Discharge home tomorrow
Assessment / Plan
Assessment / Plan
CXR 12/25/23: No suspected acute cardiopulmonary process.
CXR 12/26/23: No acute cardiopulmonary process.
Sepsis:
Acute coronavirus infection:
Acute hypoxic respiratory insufficiency:
-Developed fever on 12/26/23 with drowsiness, confusion (possible acute metabolic encephalopathy). Now improved.
-Repeat CXR clear.
-S/p Cefepime and vancomycin as no bacterial source of fever and also cultures are negative.
-Continue molnupiravir through 12/31, inhaler treatments for wheezing
-Paxlovid contraindicated with Eliquis and Atorvastatin
-Hypoxia resolved, currently on room air
-Tested positive on 12/26, will need to isolate through 01/04
-Decline by SNF, plan for discharge home 12/31, patient declines home visiting nurses
SOB, weakness:
-Likely from COVID , now positive
-Patient was short of breath one night prior to admission but denied shortness of breath at this time of admission
-CXR without acute disease
-ProBNP lower than prior at 3180
-Saturating well on RA (92% is ideal for COPD pt)
-Currently there does not appear to be an exacerbation of COPD or CHF
-PT/OT/CM - rec SNF
Hypokalemia:
-Resolved, continue potassium supplements daily
Constipation:
-Resolved, continue laxatives
Other problems:
Chronic HFmrEF: Farxiga/BB/Lasix
Permanent A-fib: Cont Eliquis/BB
GERD: Cont PPI
CKD3b
HLD: Statin
Hypothyroidism: Cont Levoxyl
DVT prophylaxis�Eliquis
Full code
Total time spent to see the patient on the floor, examine the patient, review data and lab results, discuss treatment plan with patient, nursing staff around 37 minutes.
Physical Exam
General: No acute distress
HEENT: Normocephalic, Atraumatic, EOMI, MMM
Respiratory: Diminished breath sounds at the bases
Cardiac: Normal S1/S2, Regular Rate and Rhythm
GI: Soft, Nontender, Nondistended, Normal Bowel Sounds
Extremities: No Clubbing, Cyanosis
Neuro: Nonfocal/Grossly Intact
Psych: Calm, Cooperative
Anticipated Discharge: Within 24 hours
Subjective/Interval History
-
Date of Service: December 30, 2023
Patient has a cough. His hypoxia has resolved. No shortness of breath, no chest pain, no nausea, no vomiting. No fever.
Objective Data
-
Labs:
Laboratory Results
12/30/23 12/30/23
07:32 15:20
Sodium 136
Potassium 2.9 L 3.5
Chloride 96 L
Carbon Dioxide 31 H
BUN 27 H
Creatinine 1.6 H
Glucose 103 H
Calcium 8.5
Vital Signs:
Vital Signs
Temp Pulse Resp BP Pulse Ox
97.5 F 76 16 120/77 97
12/30/23 07:15 12/30/23 15:48 12/30/23 15:48 12/30/23 09:37 12/30/23 15:48
I&O
12/29/23 12/30/23 12/31/23
06:59 06:59 06:59
Intake Total 1810 / 1810
Output Total 2009 850 / 850
Balance -200 / -200 -850 / -850
[2023-12-31] MEDS: DESENEX/MITRAZOL/ZEASORB 1 APPLIC TOPICAL ×2 (09:16→20:39)
[2023-12-31] MEDS: FARXIGA 10 MG PO (09:17)
[2023-12-31] MEDS: SENOKOT 8.6 MG PO (09:17)
[2023-12-31] MEDS: PROTONIX 40 MG PO (09:18)
[2023-12-31] MEDS: VITAMIN B-12 PO (09:18)
[2023-12-31] MEDS: FIBERCON PO (09:18)
[2023-12-31] MEDS: ELIQUIS 2.5 MG PO ×2 (09:18→20:33)
[2023-12-31] MEDS: TOPROL XL 25 MG PO ×2 (09:19→20:35)
[2023-12-31] MEDS: LASIX 80 MG PO (09:20)
--- NOTE | 2023-12-31 09:20 | CM ---
Addendum entered by Xi Sewell RN 12/31/23 13:45:
CM spoke with the patient regarding [facility] declining patient. Per patient, home with resumption of caregivers. Caregivers will need until tomorrow to be in place. Patient declined VN services. Patient and daughter Meme in agreement with
wheelchair van and costs. There are two steps to enter the home. Attending and RN updated.
Addendum entered by Xi Sewell RN 12/31/23 12:41:
CM spoke with Paz at [facility] at [facility]. They declined the patient. Facility feels that the patient is at baseline and their is no billable diagnosis for rehab. CM informed the patient's daughter Meme of [facility]'s decision.
Original Note:
Reviewed the chart notes. IMM reviewed and placed on the chart.
[2023-12-31] MEDS: MOLNUPIRAVIR (EUA) 800 MG PO ×2 (09:39→20:37)
[2023-12-31] MEDS: KCL PO (13:30)
[2023-12-31 15:20] VITALS: BP 132/87
[2023-12-31 20:44] VITALS: BP 133/87
[2023-12-31] MEDS: LIPITOR 20 MG PO (21:03)
[2023-12-31 23:18] VITALS: BP 133/88
[2024-01-01] MEDS: SYNTHROID 125 MCG PO (05:49)
[2024-01-01 05:56] VITALS: BMI 33.1
[2024-01-01 07:00] VITALS: BMI 33.1
[2024-01-01 07:25] VITALS: BP 133/87
[2024-01-01] MEDS: ProAIR HFA INHALER INH ×3 (07:39→16:09)
[2024-01-01] MEDS: FARXIGA 10 MG PO (08:30)
[2024-01-01] MEDS: TOPROL XL 25 MG PO (08:30)
[2024-01-01] MEDS: MOLNUPIRAVIR (EUA) 800 MG PO ×2 (08:30→17:15)
[2024-01-01] MEDS: FIBERCON PO (08:30)
[2024-01-01] MEDS: KCL 20 MEQ PO (08:30)
[2024-01-01] MEDS: DESENEX/MITRAZOL/ZEASORB 1 APPLIC TOPICAL (08:30)
[2024-01-01] MEDS: PROTONIX 40 MG PO (08:31)
[2024-01-01] MEDS: ELIQUIS 2.5 MG PO (08:31)
[2024-01-01] MEDS: LASIX 80 MG PO (08:31)
[2024-01-01] MEDS: SENOKOT 8.6 MG PO (08:31)
[2024-01-01] MEDS: VITAMIN B-12 PO (08:32)
--- NOTE | 2024-01-01 08:37 | W.PN.HOSP.TC ---
Today's Communication/Plan
-
Discharge home today
Assessment / Plan
Assessment / Plan
CXR 12/25/23: No suspected acute cardiopulmonary process.
CXR 12/26/23: No acute cardiopulmonary process.
Sepsis:
Acute coronavirus infection:
Acute hypoxic respiratory insufficiency:
-Developed fever on 12/26/23 with drowsiness, confusion (possible acute metabolic encephalopathy). Now improved.
-Repeat CXR clear.
-S/p Cefepime and vancomycin as no bacterial source of fever and also cultures are negative.
-Continue molnupiravir through 12/31, inhaler treatments for wheezing
-Paxlovid contraindicated with Eliquis and Atorvastatin
-Hypoxia resolved, currently on room air
-Tested positive on 12/26, will need to isolate through 01/04
-Declined by SNF, plan for discharge home 12/31, patient declines home visiting nurses
-Follow-up with PCP in 1 week
SOB, weakness:
-Likely from COVID 19, now positive
-Patient was short of breath one night prior to admission but denied shortness of breath at this time of admission
-CXR without acute disease
-ProBNP lower than prior at 3180
-Saturating well on RA (92% is ideal for COPD pt)
-Currently there does not appear to be an exacerbation of COPD or CHF
-PT/OT/CM - rec SNF
Hypokalemia:
-Resolved, continue potassium supplements daily, prescription provided
Constipation:
-Resolved, continue laxatives
Other problems:
Chronic HFmrEF: Farxiga/BB/Lasix
Permanent A-fib: Cont Eliquis/BB
GERD: Cont PPI
CKD3b
HLD: Statin
Hypothyroidism: Cont Levoxyl
DVT prophylaxis�Eliquis
Full code
Physical Exam
General: No acute distress
HEENT: Normocephalic, Atraumatic, EOMI, MMM
Respiratory: Diminished breath sounds at the bases
Cardiac: Normal S1/S2, Regular Rate and Rhythm
GI: Soft, Nontender, Nondistended, Normal Bowel Sounds
Extremities: No Clubbing, Cyanosis
Neuro: Nonfocal/Grossly Intact
Psych: Calm, Cooperative
Anticipated Discharge: Today
Subjective/Interval History
-
Date of Service: January 01, 2024
No acute events. He is off of oxygen. Has a mild cough. No fever, no shortness of breath, no vomiting.
Objective Data
-
Labs:
Laboratory Results
01/01/24
06:00
Sodium Pending
Potassium Pending
Chloride Pending
Carbon Dioxide Pending
BUN Pending
Creatinine Pending
Glucose Pending
Calcium Pending
Vital Signs:
Vital Signs
Temp Pulse Resp BP Pulse Ox
97.4 F 71 18 133/87 96
12/31/23 23:18 01/01/24 08:30 01/01/24 07:40 01/01/24 08:30 01/01/24 07:40
I&O
12/31/23 01/01/24 01/02/24
06:59 06:59 06:59
Intake Total 1680 / 1680 1400 / 1400
Output Total 1110 / 1110 1655 / 1655
Balance 570 / 570 -255 / -255
--- NOTE | 2024-01-01 10:53 | W.DCSUMMARY ---
Discharge Summary
Discharge Data
Date of Admission: 12/26/23
Date of Discharge: 01/01/24
-
Pending Results: No
Hospital Course
Discharge diagnosis:
Acute coronavirus infection
Acute hypoxic respiratory sufficiency
Weakness
Hypokalemia
Constipation
Chronic heart failure with a moderately reduced ejection fraction
Permanent atrial fibrillation
Gastroesophageal reflux disease
Stage IIIb chronic kidney disease
Hypothyroidism
Hyperlipidemia
Obesity due to excess calories
Chest x-ray:
No acute cardiopulmonary process.
Hospital course:
88-year-old male with past medical history of COPD, atrial fibrillation, CHF, hypertension, hyperlipidemia, CKD, previous CVA, and obesity presented with weakness, shortness of breath. Patient was found to have acute hypoxic respiratory
insufficiency secondary to acute coronavirus infection. Chest x-ray was negative for infiltrate or opacity.
Patient initially received IV antibiotics. Antibiotics were discontinued when no bacterial source of his fever was found and his blood cultures were negative.
Paxlovid is contraindicated with Eliquis and atorvastatin. Patient was treated with a full course of molnupiravir. His hypoxia and shortness of breath resolved.
Patient is on Lasix 80 mg daily for his CHF. He was hypokalemic. He received potassium repletion, and will be discharged on potassium chloride 10 mEq daily. He needs a repeat BMP with his PCP in 1 week.
Patient was seen in conjunction with PT, who recommended short-term rehab. Patient was declined by short-term rehab. He will be discharged home. He declines home visiting nurses. He needs to follow-up with his primary care doctor in 1 week.
Disposition: Home self-care, patient declined home VN
Discharge planning: Required 45 minutes
Discharge Plan
-
Patient Disposition: Group Home/SNF
Discharge Diagnosis/Procedures: Acute coronavirus infection, hypoxia, hypokalemia, weakness, persistent atrial fibrillation, chronic heart failure, chronic kidney disease
Condition: Fair
Diet: Low Fat, Low Cholesterol and 2 Gram Sodium
Activity: As tolerated
Blood Work: BMP with your primary care provider in 1 week
Specialty Instructions: Weigh Daily- Call MD for wt gain/loss 3 lbs overnight/5 lbs in 1 week
Activity Restrictions/Additional Instructions:
Tested positive for coronavirus on 12/26, will need to isolate through 01/04.
Follow-up with your primary care doctor in 1 week.
Referrals:
Hilda England MD [Family Provider] - in less than 1 week
Prescriptions:
New
potassium chloride 10 mEq capsule, extended release
10 meq PO DAILY Qty: 30 0RF
Continued
cyanocobalamin (vitamin B-12) 1,000 MCG tablet
1,000 mcg PO DAILY
calcium polycarbophil [Fiber-Tabs] 625 MG tablet
625 mg PO DAILY
levothyroxine 125 mcg Tablet
125 mcg PO DAILY
Eliquis 2.5 mg Tablet
2.5 mg PO BID 30 Days Qty: 60 0RF
furosemide [Lasix] 80 mg tablet
80 mg PO DAILY Qty: 90 5RF
pantoprazole 40 mg Tablet,Delayed Release (Dr/Ec)
40 mg PO DAILY Qty: 90 0RF
sennosides [senna] 8.6 mg Tablet
8.6 mg PO DAILY
atorvastatin 20 mg Tablet
20 mg PO HS
furosemide 80 mg Tablet
40 mg PO DAILY@1300 PRN (Reason: swelling/edema)
dapagliflozin propanediol [Farxiga] 10 mg Tablet
10 mg PO DAILY
metoprolol succinate 25 mg tablet extended release 24 hr
25 mg PO BID
Discharge Orders:
Discharge Patient (As Directed); Ordered 01/01/24
Ordered By: Caleb Kapoor
Discharge Date and Time
Print Language: ALBANIAN
--- NOTE | 2024-01-01 11:40 | CM ---
Addendum entered by Xi Sewell RN 01/01/24 15:43:
Patient will be transported by BLS with copay of wheelchair of $80.00.
Addendum entered by Xi Sewell RN 01/01/24 13:55:
Paz from [facility] called to decline patient.
Plan: Discharge to home via w/c van with resumption of 09/[address]
Original Note:
Reviewed the chart notes. Received call from Paz at [facility] requesting additional clinicals for review for possible placement. Sent via [email or web address]. Called and left voice message for the patient's daughter Meme regarding the above. If [facility] is unable to accept, then the patient will discharge to home via wheelchair van. CM continues to be available to patient/family and is monitoring medical plan for needs at discharge.
Plan: Discharge plans will be either to [facility] for rehab or home with 24/ caregiver in place. Patient has declined VN when going home.
[2024-01-01 15:00] VITALS: BP 116/74
== END 2024-01-01 17:40 | disposition home or self-care (01) | DRG 871 ==
LOC: 2 NORTH 11:15
PROVIDERS: Hospitalist; Physician Assistant Medical; Registered Nurse; ADMITTING PHYSICIAN Internal Medicine; ATTENDING PHYSICIAN Family Medicine; EMERGENCY PHYSICIAN Student in an Organized Health Care Education/Training Program; FAMILY PHYSICIAN Family Medicine
DX: A41.9 Sepsis, unspecified organism (principal); G93.41 Metabolic encephalopathy; U07.1 COVID-19; E87.1 Hypo-osmolality and hyponatremia; I48.21 Permanent atrial fibrillation; I13.0 Hypertensive heart and chronic kidney disease with heart failure and stage 1 through stage 4 chronic kidney disease, or unspecified chronic kidney disease; I50.22 Chronic systolic (congestive) heart failure; J84.9 Interstitial pulmonary disease, unspecified; E78.00 Pure hypercholesterolemia, unspecified; I25.10 Atherosclerotic heart disease of native coronary artery without angina pectoris; E87.6 Hypokalemia; E03.9 Hypothyroidism, unspecified; N18.32 Chronic kidney disease, stage 3b; Z95.5 Presence of coronary angioplasty implant and graft; N40.0 Benign prostatic hyperplasia without lower urinary tract symptoms; R06.89 Other abnormalities of breathing; R09.02 Hypoxemia; K59.00 Constipation, unspecified; J44.9 Chronic obstructive pulmonary disease, unspecified; K21.9 Gastro-esophageal reflux disease without esophagitis; E66.09 Other obesity due to excess calories; Z68.33 Body mass index [BMI] 33.0-33.9, adult; Z86.73 Personal history of transient ischemic attack (TIA), and cerebral infarction without residual deficits; Z79.01 Long term (current) use of anticoagulants; Z79.84 Long term (current) use of oral hypoglycemic drugs; Z79.890 Hormone replacement therapy; Z79.899 Other long term (current) drug therapy; Z87.891 Personal history of nicotine dependence
CPT/HCPCS: 71045; 71046; 80048; 80053; 80202; 81003; 81015; 82533; 83735; 83880; 84132; 84443; 84484; 85027; 87040; 87070; 87811; 93005; 94640; 96374; 97116; 97163; 97167; 97530; 99285

== ENCOUNTER → 2024-02-25 12:06 | Outpatient (REF) | payer MEDICARE, BC, SELFPAY ==
[2024-02-25 14:04] LABS: Blood Urea Nitrogen 20 mg/dl (9-20); Calcium 8.9 mg/dl (8.4-10.2); Carbon Dioxide 28 mmol/L (22-30); Chloride 98 mmol/L (98-107); Glucose 118 mg/dl (70-99); Potassium 4.1 mmol/L (3.5-5.1); Sodium 139 mmol/L (135-145)
== END ==
LOC: REG 12:06
PROVIDERS: ATTENDING PHYSICIAN Family Medicine
DX: E87.6 Hypokalemia (principal)
CPT/HCPCS: 36415; 80048

== ENCOUNTER 2024-06-08 13:40 | Emergency (ER) | payer MEDICARE, BC, SELFPAY ==
[2024-06-08 13:55] VITALS: BP 145/97
[2024-06-08 13:57] VITALS: BP 145/97
--- NOTE | 2024-06-08 15:04 | ED.SKININJ ---
HPI-Injury
General
Chief Complaint: Head Injury
Source: patient
Exam Limitations: none
Time Seen by Provider: 06/08/24 14:05
History of Present Illness-Injury
Initial Injury comments:
88-year-old male on Eliquis for A-fib presents after slip and fall. His LOC slipped on the bathroom floor and he fell forward hitting his left side of the forehead on the edge of the tub. He notes a headache. There was no loss of conscious. He
denies neck pain. No vision change. He is at his neurologic baseline per the family. No other plaints at this time
Past History
Past History
ED Past Medical History: Arrthythmia (AFIB, s/p cardioversion), CHF, COPD, HTN, Hypercholesterolemia and Hypothyroidism
ED Past Surgical History: None
Social History
Tobacco: Former smoker
Alcohol: Occasional
Drug: None
Personal:
Living: with family
Phy Exam
Physical Exam
Physical Exam:
General: Well-appearing male no acute respiratory distress
HEENT: Normocephalic 6 cm curvilinear laceration oriented in horizontal direction left side of forehead through skin and subcutaneous tissue. No obvious muscular involvement. Pupils equal round nonreactive to light bilaterally extraocular's are
intact able to raise both eyebrows
Neurologic exam: Alert and oriented no facial asymmetry conversing appropriately no slurred speech good sensation to the upper and lower extremities
Musculoskeletal exam: The spine is nontender. Good range of motion all extremities without deformities
Course
Orders/Labs/Results
Orders:
Orders
06/08/24 13:42
CT Head W/o Iv Contrast Urgent
Comment:
Reason For Exam: fall, head injury
06/08/24 13:45
CT Cervical Spine W/o Iv Contr Urgent
Comment:
Reason For Exam: fall, head injury
Vital Signs
Initial and Last Documented VS:
Initial Vital Signs
Temp Pulse Resp BP Pulse Ox
97.3 F 54 20 145/97 96
06/08/24 13:55 06/08/24 13:55 06/08/24 13:55 06/08/24 13:55 06/08/24 13:55
Last Documented Vital Signs
Temp Pulse Resp BP Pulse Ox
97.3 F 62 18 145/97 98
06/08/24 13:57 06/08/24 13:57 06/08/24 13:57 06/08/24 13:57 06/08/24 13:57
MDM/Problems Addressed
Differential Diagnosis Includes:
Slip and fall with laceration to left forehead on Eliquis. CT of head and cervical spine ordered to evaluate for skull fracture versus intracranial hemorrhage. The wound was copiously irrigated with saline and closed in a layered fashion using 5-0
Vicryl for the subcutaneous tissues and 5-0 Prolene for the skin.
*Critical Care Note
Total Time (30-74mins, 75-104mins- exclusive of procedures): Not Applicable
Update Note
Update Note:
CT of head and cervical spine negative for acute traumatic injury. There is significant degenerative changes throughout the cervical spine. Patient reassured. Reports given to the patient for their review. Wound care instructions were given
antibacterial ointment and a dressing was applied. Stable for discharge
ED Attending Note
-
Portions of this chart may have been created with voice recognition software.� Occasional wrong word or��sound alike� substitutions may have occurred due to the inherent limitations of voice recognition software.
Discharge Plan
Departure
Patient Disposition: Home (Routine Discharge)
Date of Disposition: 06/08/24
Time of Disposition: 16:25
Patient with high blood pressure during this ER visit?: No
Discharge Problem:
Laceration
Instructions: Laceration Repair With Stitches (DC)
Prescriptions:
No Action
cyanocobalamin (vitamin B-12) 1,000 MCG tablet
1,000 mcg PO DAILY
calcium polycarbophil [Fiber-Tabs] 625 MG tablet
625 mg PO DAILY
levothyroxine 125 mcg Tablet
125 mcg PO DAILY
Eliquis 2.5 mg Tablet
2.5 mg PO BID 30 Days Qty: 60 0RF
furosemide [Lasix] 80 mg tablet
80 mg PO DAILY Qty: 90 5RF
pantoprazole 40 mg Tablet,Delayed Release (Dr/Ec)
40 mg PO DAILY Qty: 90 0RF
sennosides [senna] 8.6 mg Tablet
8.6 mg PO DAILY
atorvastatin 20 mg Tablet
20 mg PO HS
furosemide 80 mg Tablet
40 mg PO DAILY@1300 PRN (Reason: swelling/edema)
dapagliflozin propanediol [Farxiga] 10 mg Tablet
10 mg PO DAILY
metoprolol succinate 25 mg tablet extended release 24 hr
25 mg PO BID
potassium chloride 10 mEq capsule, extended release
10 meq PO DAILY Qty: 30 0RF
Referrals:
Hilda England MD [Family Provider] -
Activity Restrictions/Additional Instructions:
Apply antibacterial into the wound. Use ice for swelling. Use Tylenol if needed for pain. Hold Eliquis for tonight. Have sutures removed in 5 to 7 days. Return if needed otherwise.
Interventions
Interventions:
*Risk Screen - Suicide Last Done: 06/08/24 13:57
ED- Neurological Assessment Last Done: 06/08/24 14:21
ED-Skin Assessment Last Done: 06/08/24 14:21
Discharge Date and Time
Print Language: HUNGARIAN
[2024-06-08 16:49] VITALS: BP 148/79
== END 2024-06-08 16:51 | disposition home or self-care (01) ==
LOC: EMR 13:40
PROVIDERS: EMERGENCY PHYSICIAN Emergency Medicine; FAMILY PHYSICIAN Family Medicine
DX: S01.81XA Laceration without foreign body of other part of head, initial encounter (principal); W01.198A Fall on same level from slipping, tripping and stumbling with subsequent striking against other object, initial encounter; I48.0 Paroxysmal atrial fibrillation; Z79.01 Long term (current) use of anticoagulants; Z87.891 Personal history of nicotine dependence
CPT/HCPCS: 99284; 12053; 70450; 72125

== ENCOUNTER → 2024-08-24 14:11 | Outpatient (REF) | payer MEDICARE, BC, SELFPAY ==
[2024-08-24 15:31] LABS: % Basophils 0.5 % (0-2); % Eosinophils 3.2 % (0-6); % Immature Granulocytes 0.3 % (0-0.5); % Lymphocytes 17.3 % (20.5-51.1); % Monocytes 11.1 % (1.7-9.3); % Neutrophils 67.6 % (42.2-75.2); Absolute Eosinophils 0.2 10^3/uL (0-0.7); Absolute Monocytes 0.7 10^3/uL (0.1-0.6); Hematocrit 44.2 % (39.0-52.0); Hemoglobin 14.1 g/dL (13.0-18.0); Mean Corp Hgb Conc. 31.9 g/dL (33.0-37.0); Mean Corpuscular Hgb 29.2 pg (27.0-31.0); Mean Corpuscular Volume 91.5 fL (80.0-94.0); Mean Platelet Volume 9.5 fL (7.4-10.4); Nucleated Red Blood Cells % 0 % (-); Platelet Count 224 10^3/uL (130-400); Red Blood Cell Count 4.83 10^6/uL (4.70-6.10); Red Cell Dist. Width 15.5 % (11.5-14.5)
[2024-08-24 16:00] LABS: Blood Urea Nitrogen 18 mg/dl (9-20); Calcium 9.6 mg/dl (8.4-10.2); Carbon Dioxide 34 mmol/L (22-30); Chloride 98 mmol/L (98-107); Glucose 109 mg/dl (70-99); Potassium 3.5 mmol/L (3.5-5.1); Sodium 139 mmol/L (135-145)
[2024-08-24 16:30] LABS: TSH 2.57 uIU/ml (0.47-4.68)
== END ==
LOC: REG 14:11
PROVIDERS: ATTENDING PHYSICIAN Family Medicine
DX: E03.9 Hypothyroidism, unspecified (principal); N18.32 Chronic kidney disease, stage 3b; I50.32 Chronic diastolic (congestive) heart failure
CPT/HCPCS: 36415; 80048; 84443; 85025

== ENCOUNTER → 2025-03-30 12:56 | Outpatient (REF) | payer MEDICARE, BC, SELFPAY ==
[2025-03-30 14:12] LABS: Hematocrit 41.9 % (39.0-52.0); Hemoglobin 13.1 g/dL (13.0-18.0); Mean Corp Hgb Conc. 31.3 g/dL (33.0-37.0); Mean Corpuscular Volume 91.3 fL (80.0-94.0); Nucleated Red Blood Cells % 0 % (-); Platelet Count 177 10^3/uL (130-400); Red Cell Dist. Width 16.5 % (11.5-14.5)
[2025-03-30 14:29] LABS: Glycohemoglobin (HgbA1c) 6.5 % (4.0-5.9)
[2025-03-30 14:36] LABS: Blood Urea Nitrogen 19 mg/dl (9-20); Calcium 9.1 mg/dl (8.4-10.2); Carbon Dioxide 32 mmol/L (22-30); Chloride 98 mmol/L (98-107); Glucose 93 mg/dl (70-99); Potassium 4.3 mmol/L (3.5-5.1); Sodium 134 mmol/L (135-145); eGFR 40.93
[2025-03-30 15:05] LABS: TSH 4.42 uIU/ml (0.47-4.68)
== END ==
LOC: REG 12:56
PROVIDERS: ATTENDING PHYSICIAN Family Medicine
DX: E11.22 Type 2 diabetes mellitus with diabetic chronic kidney disease (principal); N18.31 Chronic kidney disease, stage 3a; I50.32 Chronic diastolic (congestive) heart failure; E03.9 Hypothyroidism, unspecified; N18.32 Chronic kidney disease, stage 3b
CPT/HCPCS: 36415; 80048; 83036; 84443; 85025